=== PATIENT | male | born 1960 | race Caucasian/White ===

== ENCOUNTER → 2016-10-09 | Outpatient (CLI) | payer BC ==
[~2016-10-09] MED LIST: CEPH500C PO; SERT25TA PO
== END | disposition home or self-care (01) ==
LOC: C.RDSM 11:16
PROVIDERS: ATTEND Family Medicine
DX: M79.644 Pain in right finger(s) (principal)

== ENCOUNTER → 2017-03-05 | Outpatient (CLI) | payer OTHER ==
--- NOTE | 2017-03-05 15:08 | DIAGNOSTIC IMAGING REPORT ---
SOFT TISS HEAD/NECK-THYROID HISTORY: Nodes CERVICAL LYMPHADENOPATHY COMPARISON: None. FINDINGS: Findings consistent of bilateral cervical adenopathy. Largest node is inferior to the right mandible measuring 3.5 x 2.0 cm. Additional nodes are present all of which are smaller. No evidence for fatty hilum. IMPRESSION: Bilateral cervical adenopathy most prominent at the palpable region inferior to the right mandible. As it is palpable, fine needle aspiration in pathology is initially suggested. The above report was generated using voice recognition software. It may contain grammatical, syntax or spelling errors. Electronically signed by: Mati Marie M.D. 03/05/2017 3:07 PM Dictated Date/Time: 03/05/2017 3:05 PM
== END | disposition home or self-care (01) ==
LOC: C.ULTRBC 14:45
PROVIDERS: ATTEND Family Medicine
DX: R59.0 Localized enlarged lymph nodes (principal)

== ENCOUNTER → 2017-03-19 | Outpatient (CLI) | payer OTHER | END | disposition home or self-care (01) | LOC: C.PATH 08:47 | PROVIDERS: ATTEND Family Medicine | DX: R59.0 Localized enlarged lymph nodes (principal) ==

== ENCOUNTER 2022-08-10 09:35 | Inpatient (IN) ==
--- NOTE | 2022-08-10 11:27 | XRay Report ---
XR KUB/Abdomen 1 view CLINICAL HISTORY: constipation TECHNIQUE: 1 view of the abdomen was obtained. Comparison: Comparison is made to CT abdomen pelvis 07/30/2022 FINDINGS: A gastrostomy tube is seen. The osseous structures are grossly unremarkable. The bowel gas pattern is nonobstructive. A moderate amount of stool is noted within the large bowel. IMPRESSION: Moderate stool burden without evidence of fecal impaction. ACT 112: Negative or not required by law. Electronically signed by: Amado White M.D. 08/10/2022 11:26 AM
[2022-08-10] MEDS ORDERED: LIDOCAINE 2% JELLY 5 ML TUBE EXT ONE (11:30)
[2022-08-10] MEDS ORDERED: SODIUM CHLORIDE 0.9% 1000ML 1,000 ML IV ONE (12:43)
[2022-08-10] MEDS ORDERED: OPTIRAY 320 100ml IV ONE (13:18)
--- NOTE | 2022-08-10 14:10 | CT Scan Report ---
ABDOMEN AND PELVIS CT WITH IV CONTRAST CT DOSE: 316.39 mGy.cm HISTORY: Subsequent treatment strategy. Follow up study in a patient with history of head and neck ca rcinoma rectal pain and mass, h/o head neck CA TECHNIQUE: Multiaxial CT images of the abdomen and pelvis were performed following the IV administrat ion of 94 cc of Optiray, A dose lowering technique was utilized adhering to the principles of ALARA. COMPARISON STUDY: 07/30/2022, PET/CT 06/01/2022 from outside institution (images only without report). FINDINGS: Clear lung bases. No pneumatosis or pneumoperitoneum. The spleen, pancreas and adrenal glan ds are unremarkable. Possible tiny gallstones. 1.2 cm hypodense right hepatic lobe lesion is unchange d and likely benign. 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 Subcentimeter hypodensity of the hepati c dome is too small to characterize. Patency of the hepatic and portal veins. Punctate nonobstructing calculus of the superior pole left kidney. 9 mm cyst of the inferior pole lef t kidney. Unremarkable right kidney. No hydronephrosis. Nonspecific urinary bladder wall thickening. Prostatomegaly. Atherosclerosis of aorta without aneurysm. Surgical clips of the scrotum. No lymphade nopathy. Large amount of acute deep venous thrombi noted within branches of the right internal and ex ternal iliac veins, new from prior. A gastrostomy tube is in place and appears unremarkable. Moderate fecal retention. Mild rectal wall t hickening with perirectal stranding, progressed from prior. Trace abdominal pelvic ascites. Visualize d appendix appears normal. Nonobstructive bowel gas pattern. No acute fracture or destructive bone le whitley. IMPRESSION: 1. Acute deep venous thrombi of the right internal and external iliac veins, new from 07/30/2022. 2. Findings compatible with a nonspecific proctitis, possibly on a stercoral basis. 3. No bowel obstruction or pneumoperitoneum. 4. Unremarkable appearance of the gastrostomy tube. 5. Additional findings as above. ACT 112: Negative or not required by law. The above report was generated using voice recognition software. It may contain grammatical, syntax o r spelling errors. Electronically signed by: Lopez Monzon M.D. 08/10/2022 2:08 PM
[2022-08-10] MEDS ORDERED: HYDROmorphone INJ 0.5 MG/0.5 ML SYR IV PRN (14:17)
[2022-08-10] MEDS ORDERED: ONDANSETRON INJ 2 MG/ML 2 ML VIAL IV STA (14:18)
[2022-08-10] MEDS ORDERED: Heparin IV Adult Wt-Based Standard WITH Bolus Protocol IV STA (14:23)
[2022-08-10] MEDS ORDERED: HEPARIN SOD (PORCINE) 1000 UNIT/ML IV ONE (14:38)
[2022-08-10] MEDS ORDERED: HEPARIN SODIUM/DEXTROSE 25,000 UNITS/500 ML BAG IV SCH (14:45)
--- NOTE | 2022-08-10 14:49 | History & Physical Report ---
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 Currently on chemotherapy with cisplatin, and finished the seventh cycle was on 08/08/2022, and has only 2 more radiation treatments to complete. He follows with Dr. Roque Torres and Shalini Torres rad/onc. -Continue pain control with viscous lidocaine, consider reducing morphine sulfate concentrate if does not seem to improve pain, dexamethasone 2 mg daily, fluconazole 100 mg daily, -Follows with oncology and Rad/Onc as outpatient (2) Chemotherapy induced neutropenia: Plan: - Follow cbc w/ diff - Neutropenic precautions (3) Acute DVT (deep venous thrombosis): Plan: - CT abd/pelvis reviewed showing new DVT - Continue heparin gtt for now, discuss transition to DOAC vs lovenox dosing tomorrow - US doppler BLE pending, no edema, no known trauma but appears to be provoked due to cancer as above (4) Constipation: Plan: - Last BM 5 d ago, milk of mag enema administered in the ER, small BM--- will continue mirilax through peg tube until bowel movement - Consider relistor IV if miralax unsuccessful (5) Malnutrition: Plan: - Risk And Insurance Consultant consulted - follow with as outpatient - Daily weight - NSS at 80 ml/hr x 1 more bag, already received 1 L NSS - Boost [facility] peg TID at home not available here, will ask for substitute of Nutren 2.0 if unable to bring this from home DVT ppx: - teds, scds, heparin drip CODE: DNR/DNI Dispo: From home, likely to remain in the hospital x 1-2 days A total of 80 minutes were spent with greater than 50% of that time face to face with the patient, personally reviewing all current laboratories, imaging studies, past medication reconciliation, outpatient chart review, and discussion with specialists to collaborate care for the patient with attending. Please see attending documentation for corrections and/or additions. History of Present Illness Chief Complaint: Constipation Primary Care Provider: NO PCP This is a 61 yo past medical history of right tonsillar squamous cell carcinoma T2 N1 M0, stage I disease, with right cervical lymph node involvement, originally diagnosed in Mar 2017 s/p FNA. Currently on chemotherapy with cisplatin, and finished the seventh cycle was on 08/08/2022, and has only 2 more radiation treatments to complete. He follows with Dr. Roque Torres and Shalini Torres rad/onc. He reports having recent constipation and has not had a bowel movement in the last 5 days. He does have some lower rectum like pain, felt that there was hard stool unable to pass, and felt 10/10 pain and nearly passed out. In the ER he was administered a milk of magnesium enema with some success, he reports that it was "traumatic" and would prefer to not have another enema. He is agreeable to high-dose MiraLAX through the PEG tube. His pain involving tonsillar carcinoma is currently well controlled, and reports getting more relief from viscous lidocaine with swish and spit then he does from oral concentrated morphine. Patient reports that his PEG tube was placed to [facility] exactly 2 weeks ago on 07/27/22, the peg tube placement is slightly irritating, however denies any acute pain, discharge, bleeding from the site. He has been using boost high density protein/calorie 3 times per day and tolerating it well. He does take some p.o. intake, yesterday was able to tolerate a full boost orally as well as water. Pt reports large amount of weight loss over the past few months and does not know if he has lost more weight since peg was placed. He does swallow the majority of his medications by mouth, but does report having some right-sided tongue soreness. He has a history of oral Nava/thrush on daily Diflucan per his oncologist. He also notes that he has been looking for a PCP, as 2 of his previous providers left [facility] practice. Pt is requesting something to drink/ice as his mouth is very dry. CT abdomen pelvis shows new acute right internal and external iliac vein DVT, moderate stool, proctitis. The DVT in iliac veins is new compared to a previous scan from 07/30/22. He denies any peripheral lower leg swelling. Pt reports never having a blood clot before. No known family members with clotting disorder to his knowledge. Pt reports prior to this he is a very healthy person, mountain bikes, rock climbs for fun, not on any previous medication. Allergies Allergy/AdvReac Type Severity Reaction Status Date / Time oxycodone Allergy Intermediate Gastrointestinal Unverified 08/10/22 12:14 Upset Home Medications Medication Instructions Recorded Confirmed Type multivitamin 1 tab PO DAILY 07/02/22 08/10/22 History ondansetron HCl 8 mg tablet 8 mg PO Q8H PRN NAUSEA/VOMITING 07/02/22 08/10/22 History prochlorperazine maleate 10 mg 10 mg PO Q6H PRN NAUSEA/VOMITING 07/02/22 08/10/22 History tablet (Compazine) fluocinonide 0.05 % topical cream 1 applic topical QID PRN itching 07/24/22 08/10/22 Rx #60 grams omeprazole 20 mg capsule,delayed 20 mg PO DAILY 07/24/22 08/10/22 History release dexamethasone 4 mg tablet 2 mg PO DAILY 07/30/22 08/10/22 History metoclopramide HCl 10 mg tablet 10 mg PO Q6H PRN ABD PAIN 07/30/22 08/10/22 History (Reglan) fluconazole 100 mg tablet 100 mg PO DAILY 08/06/22 08/10/22 History docusate sodium 100 mg capsule 100 mg PO BID PRN Constipation 08/10/22 08/10/22 History (Colace) fluoride (sodium) 1.1 % dental See Rx Instructions .Route .COMPLEX 08/10/22 08/10/22 History cream (SF 5000 Plus) lidocaine 5 % topical ointment 1 applic topical TID PRN Pain 08/10/22 08/10/22 History lidocaine HCl 2 % mucosal solution 2.5 ml mucous membrane Q6H PRN 08/10/22 08/10/22 History (Lidocaine Viscous) Severe Pain (Scale Score 7-10) morphine concentrate 100 mg/5 mL 5 mg PO Q4H PRN Severe Pain (Scale 08/10/22 08/10/22 History (20 mg/mL) oral solution Score 7-10) nut tx, lact-reduced, iron 0.09 1 ea feeding tube TID 08/10/22 08/10/22 History gram-2.25 kcal/mL oral liquid (Boost VHC) silver sulfadiazine 1 % topical 1 applic topical BID 08/10/22 08/10/22 History cream (Silvadene) Past Med/Surg History Medical History Bone fracture Ribs and right ankle Head and neck cancer Kidney stone Squamous cell carcinoma Diagnosed via biopsy on 05/14/22 Surgical History H/O hemorrhoidectomy History of hernia repair Laparoscopy Bilateral inguinal hernia repair Family History Father , 87yo Myocardial infarction Diabetes Hypertension Sister Melanoma Mother Hypertension PAD (peripheral artery disease) Sister No problems noted. Other No family history of adverse response to anesthesia No family history of bleeding disorder Social History Smoking Status: Never smoker Second Hand Exposure: Yes; Do You Dip or Chew Tobacco: No; Hx Alcohol Use: Yes Alcohol Intake Frequency: Monthly or Less Hx Substance Use: No Preferred Language: German Communication Ability: Effective Visual Impairment: No Limitations Hearing Ability: Normal Wheat Buyer Required: No Beliefs That Will Affect Care: None marital status: Current Living Situation: Spouse current occupational status: retired current occupation: Artist How many Children do You have: 0 Feels Safe at Home: Yes Diet: regular caffeine: Yes (1-2 cups/day) during the past year weight has: remained stable Assistive Devices: Glasses Review of Systems Review of Systems: Constitutional: No fever, sweats or chills Eyes: No diplopia, no worsening or blurred vision ENT: normal hearing, no trouble swallowing, no dysphagia or sensation of food getting stuck, + redness and irritation of the right neck s/p XRT therapy Respiratory: No cough, sputum, dyspnea at rest or on exertion Cardiovascular: No chest pain, tightness or palpitations Abdomen: No pain, nausea, vomiting, diarrhea. + peg tube in place, + constipation as per HPI Musculoskeletal: No joint pain, calf pain, swelling Neurologic: No weakness, numbness/tingling, or balance problems Psychiatric: No anxiety or depression Skin: No rash or itch Physical Exam Physical Exam: General: awake, alert, no apparent distress, + thin with BMI of 16.8 Head: Normocephalic, atraumatic ENT: PERRL, EOMI, no pharyngeal exudate, mucous membranes moist Chest: Clear to auscultation, on room air, no adventitious breath sounds Cardiac: Regular rate and rhythm, no murmur, no JVD, normal peripheral pulses, good capillary refill Abdominal: NABS x 4 quadrants, soft, nondistended, nontender to palpation, no rebound or guarding Extremities: Normal inspection, no peripheral edema or erythema, calfs nontender to palpation Psych: Normal mood and affect Neuro: AAO x 3, strength intact bilaterally and rated 5/5, no motor deficits, speech is clear, no peripheral sensory deficits Results & Data Results & Data Vital Signs (Past 12 Hours) Vital Signs Temp Pulse Resp BP Pulse Ox O2 Del Method 08/10/22 09:49 36.4 C L 75 18 131/69 100 Room Air Laboratory Results 08/10/22 08/10/22 08/10/22 15:07 15:07 15:07 WBC 3.06 L RBC 3.09 L Hgb 10.0 L Hct 28.4 L MCV 91.9 MCH 32.4 MCHC 35.2 RDW Std Deviation 44.1 RDW Coeff of Anita 13.8 Plt Count 134 MPV 9.6 Immature Gran % (Auto) 0.0 Neut % (Auto) 81.8 Lymph % (Auto) 1.6 Harney % (Auto) 16.3 Eos % (Auto) 0.0 Baso % (Auto) 0.3 Neut # (Auto) 2.50 Lymph # (Auto) 0.05 L Harney # (Auto) 0.50 Eos # (Auto) 0.00 Baso # (Auto) 0.01 Immature Gran # (Auto) 0.00 L PT 11.4 INR 1.0 APTT 21.1 PTT Ratio 0.7 Sodium 133 L Potassium 4.8 Chloride 102 Carbon Dioxide 25 Anion Gap 6 BUN 20 Creatinine 0.73 Est Cr Clr Drug Dosing 68.0 Est GFR ( Amer) 115.2 Est GFR (Non-Af Amer) 99.4 BUN/Creatinine Ratio 27.4 H Glucose 108 H Calcium 8.2 L Total Bilirubin 0.4 AST 16 ALT 10 Alkaline Phosphatase 52 Total Protein 5.7 L Albumin 3.2 L Globulin 2.5 Albumin/Globulin Ratio 1.3 Diagnostic Findings KUB X-Ray 08/10/22 10:19 XR KUB/Abdomen 1 view CLINICAL HISTORY: constipation TECHNIQUE: 1 view of the abdomen was obtained. Comparison: Comparison is made to CT abdomen pelvis 07/30/2022 FINDINGS: A gastrostomy tube is seen. The osseous structures are grossly unremarkable. The bowel gas pattern is nonobstructive. A moderate amount of stool is noted within the large bowel. IMPRESSION: Moderate stool burden without evidence of fecal impaction. ACT 112: Negative or not required by law. Electronically signed by: Amado White M.D. 08/10/2022 11:26 AM Abdomen/Pelvis CT 08/10/22 12:[address] WITH IV CONTRAST CT DOSE: 316.39 mGy.cm HISTORY: Subsequent treatment strategy. Follow up study in a patient with history of head and neck carcinoma rectal pain and mass, h/o head neck CA TECHNIQUE: Multiaxial CT images of the abdomen and pelvis were performed following the IV administration of 94 cc of Optiray, A dose lowering technique was utilized adhering to the principles of ALARA. COMPARISON STUDY: 07/30/2022, PET/CT 06/01/2022 from outside institution (images only without report). FINDINGS: Clear lung bases. No pneumatosis or pneumoperitoneum. The spleen, pancreas and adrenal glands are unremarkable. Possible tiny gallstones. 1.2 cm hypodense right hepatic lobe lesion is unchanged and likely benign. 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 Subcentimeter hypodensity of the hepatic dome is too small to characterize. Patency of the hepatic and portal veins. Punctate nonobstructing calculus of the superior pole left kidney. 9 mm cyst of the inferior pole left kidney. Unremarkable right kidney. No hydronephrosis. Nonspecific urinary bladder wall thickening. Prostatomegaly. Atherosclerosis of aorta without aneurysm. Surgical clips of the scrotum. No lymphadenopathy. Large amount of acute deep venous thrombi noted within branches of the right internal and external iliac veins, new from prior. A gastrostomy tube is in place and appears unremarkable. Moderate fecal retention. Mild rectal wall thickening with perirectal stranding, progressed from prior. Trace abdominal pelvic ascites. Visualized appendix appears normal. Nonobstructive bowel gas pattern. No acute fracture or destructive bone lesion. IMPRESSION: 1. Acute deep venous thrombi of the right internal and external iliac veins, new from 07/30/2022. 2. Findings compatible with a nonspecific proctitis, possibly on a stercoral basis. 3. No bowel obstruction or pneumoperitoneum. 4. Unremarkable appearance of the gastrostomy tube. 5. Additional findings as above. ACT 112: Negative or not required by law. The above report was generated using voice recognition software. It may contain grammatical, syntax or spelling errors. Electronically signed by: Lopez Monzon M.D. 08/10/2022 2:08 PM Code Status & VTE Plan Code Status DNR/DNI - discussed with the patient at bedside and with his present Supervising Physician Co-Signing Physician Notes 61 yo M with right tonsillar squamous cell carcinoma since Mar 2017. He continues on chemotherapy and XRT. Severe constipation brought him in today. He reports starting liquid morphine for pain from XRT and related to new PEG, placed recently for malnutrition. Constipation was so severe he reports shaking and still reports discomfort and soreness in his rectum post enema. He is starting to feel improved overall. On exam he is cachectic but mentating clearly and in no acute distress. His is at bedside. His abdomen is soft, NTND and PEG in place without complication. Skin is warm and dry. He is able to independently sit up in bed. Lungs are clear to auscultation throughout and CV exam reveals reg rate and rhythm with S1/2 heard and no murmurs. No peripheral edema present. There is a large area of erythematous neck tissue on the right neck with granulation tissue present. There is a sheen from some sort of topical over this. Labwork reviewed with evidence of pancytopenia and improved platelets, pancytopenia likely related to chemotherapy. Imaging reviewed with abd/pel CT showing fecal retention and right internal and external iliac DVT. These are asymptomatic. 1. Acute DVT foster provoked in the setting of active malignancy 2. Opioid induced constipation 3. Squamous cell carcinoma of neck 4. Severe protein calorie malnutrition 5. Antineoplastic related pancytopenia Improvement in constipation since milk and molasses enema given in the ER. Agree with scheduled miralax via PEG. Appreciate nutrition recommendations on Boost via PEG and if this may be contributing to constipation. With morphine started in the last few weeks, this is the likely culprit. He denies needing this much anymore and we will avoid narcotics as much as able at this point. For the DVT, he is being started on a heparin drip. I touched base with his oncologist, Dr. Odessa Torres, who is in agreement to transition him to a DOAC at time of discharge when he is feeling better. He is being treated with Dr. Brandi Torres in the radiation oncology office. If not discharged prior to Saturday, will need to consult them to continue his treatments after the . I reviewed the plan with he and his who is at bedside and all questions were answered to their satisfaction. DO Josh (5) Malnutrition Malnutrition type: protein-calorie malnutrition Protein-calorie malnutrition severity: severe Qualified Code(s): E43 - Unspecified severe protein-calorie malnutrition
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
[2022-08-10 15:29] LABS: Basophils # (auto) 0.01 K/uL (0-0.2); Basophils % (auto) 0.3 %; Hematocrit (blood only) 28.4 % (42.0-52.0); Lymphocytes # (auto) 0.05 K/uL (1.2-3.4); Lymphocytes % (auto) 1.6 %; Mean Corpuscular Hemoglobin 32.4 pg (25.0-34.0); Mean Corpuscular Hgb Conc 35.2 g/dL (32.0-36.0); Mean Corpuscular Volume 91.9 fL (80.0-100.0); Mean Platelet Volume 9.6 fL (9.4-12.4); Monocytes % (auto) 16.3 %; Neutrophils % (auto) 81.8 %; Platelet Count 134 K/uL (130-400); RDW Coefficient of Variation 13.8 % (11.5-14.5); RDW Standard Deviation 44.1 fL (36.4-46.3); Red Blood Count 3.09 M/uL (4.70-6.10); White Blood Count 3.06 K/ul (4.8-10.8)
[2022-08-10 15:41] LABS: Albumin Globulin Ratio 1.3 (0.9-2); Albumin Level 3.2 gm/dl (3.4-5.0); BUN Creatinine Ratio 27.4 (10-20); Bilirubin,Total 0.4 mg/dl (0.2-1.0); Calcium 8.2 mg/dl (8.6-10.3); Est GFR (African American) 115.2 ml/min; Est GFR (Non-African American) 99.4 ml/min; Globulin 2.5 gm/dl (2.5-4.0); Potassium 4.8 mmol/L (3.5-5.1); Total Protein 5.7 gm/dl (6.0-8.3)
[2022-08-10] MEDS ORDERED: POLYETHYLENE (MIRALAX) 17 GM PACK PEG SCH (15:45)
[2022-08-10 15:58] LABS: Partial Thromboplastin Ratio 0.7; Partial Thromboplastin Time 21.1 Seconds (21.0-31.0); Prothrombin Time 11.4 Seconds (9.0-12.0)
[2022-08-10] MEDS ORDERED: SODIUM CHLORIDE 0.9% 500 ML IV SCH (16:00)
[2022-08-10] MEDS ORDERED: HEPARIN SOD (PORCINE) 1000 UNIT/ML IV STA (16:35)
--- NOTE | 2022-08-10 17:12 | Ultrasound Report ---
BILATERAL LOWER EXTREMITY VENOUS DOPPLER CLINICAL HISTORY: DVT COMPARISON STUDY: Right lower extremity venous Doppler ultrasound August 31, 2014. CT of the abdomen an d pelvis performed earlier today. TECHNIQUE: Sonography of the deep venous system of the bilateral lower extremities was performed. Co mpression and augmentation were evaluated. FINDINGS: The bilateral common femoral, superficial femoral and popliteal veins were compressible. A ugmentation was normal. Flow was shown within the deep calf vessels. The deep venous thrombus within the right internal/external iliac veins on CT from earlier today is not imaged on this exam. IMPRESSION: 1. No evidence of deep venous thrombus within the bilateral lower extremities. 2. Deep venous thrombus within the right internal and external iliac veins on CT from earlier today i s not imaged on this exam. ACT 112: Negative or not required by law. Electronically signed by: Zac Holder M.D. 08/10/2022 5:11 PM
[2022-08-10] MEDS ORDERED: MoRPHine SULFATE 10 MG/0.5 ML UDP PO PRN (19:05)
[2022-08-10] MEDS ORDERED: LIDOCAINE 5% OINT 30 GM TUBE TOP PRN (19:05)
[2022-08-10] MEDS ORDERED: FLUOCINONIDE 0.05% CR 15 GM TUBE EXT PRN (19:05)
[2022-08-10] MEDS ORDERED: DOCUSATE SODIUM 100 MG CAP PO PRN (19:05)
[2022-08-10] MEDS ORDERED: ACETAMINOPHEN 325 MG TAB PO PRN (19:05)
[2022-08-10] MEDS ORDERED: LIDOCAINE VISCOUS 2% 15 ML UDC PO PRN (19:05)
[2022-08-10] MEDS ORDERED: PROCHLORPERAZINE MALEATE 10 MG TAB PO PRN (19:05)
[2022-08-10] MEDS ORDERED: ONDANSETRON INJ 2 MG/ML 2 ML VIAL IV PRN (19:05)
[2022-08-10] MEDS: POLYETHYLENE (MIRALAX) 17 GM PACK PEG SCH ×2 (20:49→21:27)
[2022-08-10] MEDS: [UNRECOGNIZED DRUG - OTHER] PEG SCH (20:50)
[2022-08-10] MEDS: SILVER SULFADIAZINE 1% CR 50 GM JAR TOP SCH (20:50)
[2022-08-10 23:50] LABS: Partial Thromboplastin Ratio 1.2
[2022-08-11] MEDS ORDERED: HEPARIN SOD (PORCINE) 1000 UNIT/ML IV ONE (00:15)
[2022-08-11] MEDS: ONDANSETRON 8MG OD TAB PO PRN ×2 (00:47→20:44)
[2022-08-11] MEDS: METOCLOPRAMIDE HCL 10 MG TABLET PO PRN ×3 (01:25→20:44)
[2022-08-11] MEDS: POLYETHYLENE (MIRALAX) 17 GM PACK PEG SCH ×3 (03:17→16:21)
[2022-08-11 07:50] LABS: Basophils # (auto) 0.01 K/uL (0-0.2); Basophils % (auto) 0.5 %; Eosinophils # (auto) 0.01 K/uL (0-0.50); Eosinophils % (auto) 0.5 %; Hematocrit (blood only) 30.8 % (42.0-52.0); Hemoglobin 10.8 g/dl (14.0-18.0); Lymphocytes # (auto) 0.21 K/uL (1.2-3.4); Lymphocytes % (auto) 10.4 %; Mean Corpuscular Hemoglobin 32.5 pg (25.0-34.0); Mean Corpuscular Hgb Conc 35.1 g/dL (32.0-36.0); Mean Corpuscular Volume 92.8 fL (80.0-100.0); Mean Platelet Volume 10.3 fL (9.4-12.4); Monocytes # (auto) 0.39 K/uL (0.11-0.59); Monocytes % (auto) 19.4 %; Neutrophils # (auto) 1.39 K/uL (1.40-6.50); Neutrophils % (auto) 69.2 %; Platelet Count 149 K/uL (130-400); RDW Coefficient of Variation 14.1 % (11.5-14.5); RDW Standard Deviation 44.4 fL (36.4-46.3); Red Blood Count 3.32 M/uL (4.70-6.10); White Blood Count 2.01 K/ul (4.8-10.8)
[2022-08-11 08:12] LABS: BUN Creatinine Ratio 22.5 (10-20); Calcium 8.7 mg/dl (8.6-10.3); Creatinine Clr Calc Pharmacy 76.6 ml/min; Est GFR (African American) 116.5 ml/min; Est GFR (Non-African American) 100.6 ml/min; Potassium 4.2 mmol/L (3.5-5.1)
[2022-08-11] MEDS: dexAMETHasone 1 MG TAB PO SCH (08:18)
[2022-08-11] MEDS: FLUCONAZOLE 100 MG TAB PO SCH (08:19)
[2022-08-11] MEDS: MULTIVITAMIN TAB PO SCH (08:20)
[2022-08-11] MEDS: [UNRECOGNIZED DRUG - OTHER] PEG SCH ×3 (08:22→20:51)
[2022-08-11] MEDS: SILVER SULFADIAZINE 1% CR 50 GM JAR TOP SCH ×2 (08:23→20:43)
[2022-08-11 08:29] LABS: Partial Thromboplastin Ratio 1.4
[2022-08-11 08:53] LABS: Partial Thromboplastin Time 40.3 Seconds (21.0-31.0)
[2022-08-11] MEDS ORDERED: bisacodyL 5 MG TABEC PO SCH (09:00)
--- NOTE | 2022-08-11 09:49 | Hospitalist Progress Note ---
Date of Service August 11, 2022 Assessment & Plan (1) Right tonsillar squamous cell carcinoma: (2) Chemotherapy induced neutropenia: (3) Acute DVT (deep venous thrombosis): (4) Constipation: (5) Malnutrition: Plan 61 yoM with PMHx of SCC of R tonsil admitted with significant constipation and incidentally noted DVT. Constipation Currently resolved, pt now with bloody stools Holding daily dulcolax Stools now bloody likely due to heparin drip pt is currently on for DVT (see below) vs. trauma with recent enema DVT CT noted R internal and external iliac DVT Was on heparin drip Given now bloody stools, transitioned to DOAC Eliquis Consider GI eval if persistent. Monitor H/H with AM labs SCC Follows with rad onc, Dr. faustin Pain control as needed with constipation regimen Malnutrition Pt with newly placed PEG Nutrition via PEG tube with limited PO intake as tolerated Neutropenia Neutropenic precautions CODE STATUS: DNR/DNI DVT prophylaxis: On DOAC currently Dispo: Home once bloody stools resolves Admission and Anticipated Discharge Date Admission Date: August 10, 2022 Supervising Physician Co-Signing Physician Notes 61 yo M with right tonsillar squamous cell carcinoma since Mar 2017. He continues on chemotherapy and XRT. Severe constipation brought him in today. He reports starting liquid morphine for pain from XRT and related to new PEG, placed recently for malnutrition. Constipation was so severe he reports shaking and still reports discomfort and soreness in his rectum post enema. He is starting to feel improved overall. On exam he is cachectic but mentating clearly and in no acute distress. His is at bedside. His abdomen is soft, NTND and PEG in place without complication. Skin is warm and dry. He is able to independently sit up in bed. Lungs are clear to auscultation throughout and CV exam reveals reg rate and rhythm with S1/2 heard and no murmurs. No peripheral edema present. There is a large area of erythematous neck tissue on the right neck with granulation tissue present. There is a sheen from some sort of topical over this. Labwork reviewed with evidence of pancytopenia and improved platelets, pancytopenia likely related to chemotherapy. Imaging reviewed with abd/pel CT showing fecal retention and right internal and external iliac DVT. These are asymptomatic. 1. Acute DVT likley provoked in the setting of active malignancy 2. Opioid induced constipation 3. Squamous cell carcinoma of neck 4. Severe protein calorie malnutrition 5. Antineoplastic related pancytopenia Improvement in constipation since milk and molasses enema given in the ER. Agree with scheduled miralax via PEG. Appreciate nutrition recommendations on Boost via PEG and if this may be contributing to constipation. With morphine started in the last few weeks, this is the likely culprit. He denies needing this much anymore and we will avoid narcotics as much as able at this point. For the DVT, he is being started on a heparin drip. I touched base with his o ncologist, Dr. Odessa Faustin, who is in agreement to transition him to a DOAC at time of discharge when he is feeling better. He is being treated with Dr. Brandi Faustin in the radiation oncology office. If not discharged prior to Saturday, will need to consult them to continue his treatments after the . I reviewed the plan with he and his who is at bedside and all questions were answered to their satisfaction. DO Gabriel Moreno Pt seen this AM. Was having multiple BMs, now loose. Noting some blood in bowel movements that he noticed this morning. Pain well controlled. Review of Systems Review of Systems: All systems reviewed & are unremarkable except as noted in Subjective Physical Exam Physical Exam: General: Alert, oriented. Skin: rash on right neck Psych: Appropriate mood and affect Neuro: No gross deficits HEENT: NC/AT CV: RRR, Normal s1, s2. No murmurs appreciated Resp: Breath sounds clear bilaterally, no increased effort of breathing. Abdomen: Soft, nontender, nondistended. No guarding. No organomegaly appreciated. Extremities: No edema in lower extremities bilaterally. Results & Data Results & Data Vital Signs (Past 12 Hours) Vital Signs Temp Pulse Pulse Resp BP Pulse Ox O2 Del Method 08/11/22 07:54 36.7 C 67 18 133/79 96 Room Air 08/11/22 05:49 59 L 08/11/22 05:15 36.8 C 69 18 132/71 95 Room Air 08/10/22 21:56 66 08/10/22 22:51 36.8 C 70 16 125/70 95 Room Air (5) Malnutrition Malnutrition type: protein-calorie malnutrition Protein-calorie malnutrition severity: severe Qualified Code(s): E43 - Unspecified severe protein-calorie malnutrition
[2022-08-11] MEDS: APIXABAN 5 MG TABLET PO SCH ×2 (12:59→20:50)
[2022-08-11] MEDS ORDERED: PROCHLORPERAZINE MALEATE 10 MG TAB PO PRN (13:05)
[2022-08-11] MEDS ORDERED: SODIUM CHLORIDE 0.9% 1000ML 1,000 ML IV ONE (19:41)
[2022-08-12] MEDS ORDERED: APIXABAN 5 MG TABLET PO SCH
[2022-08-12 07:28] LABS: Basophils # (auto) 0.01 K/uL (0-0.2); Basophils % (auto) 0.5 %; Eosinophils # (auto) 0.04 K/uL (0-0.50); Eosinophils % (auto) 1.9 %; Hematocrit (blood only) 32.3 % (42.0-52.0); Hemoglobin 11.4 g/dl (14.0-18.0); Immature Granulocytes # (auto) 0.01 K/uL (0.01-0.20); Immature Granulocytes % (auto) 0.5 %; Lymphocytes # (auto) 0.23 K/uL (1.2-3.4); Mean Corpuscular Hemoglobin 32.3 pg (25.0-34.0); Mean Corpuscular Hgb Conc 35.3 g/dL (32.0-36.0); Mean Corpuscular Volume 91.5 fL (80.0-100.0); Mean Platelet Volume 9.9 fL (9.4-12.4); Monocytes # (auto) 0.49 K/uL (0.11-0.59); Monocytes % (auto) 23.3 %; Neutrophils # (auto) 1.32 K/uL (1.40-6.50); Neutrophils % (auto) 62.8 %; Platelet Count 183 K/uL (130-400); RDW Coefficient of Variation 14.1 % (11.5-14.5); RDW Standard Deviation 45.3 fL (36.4-46.3); Red Blood Count 3.53 M/uL (4.70-6.10)
[2022-08-12 07:49] LABS: Partial Thromboplastin Time 27.3 Seconds (21.0-31.0)
[2022-08-12] MEDS: APIXABAN 5 MG TABLET PO SCH (08:02)
[2022-08-12] MEDS: dexAMETHasone 1 MG TAB PO SCH (08:05)
[2022-08-12] MEDS: FLUCONAZOLE 100 MG TAB PO SCH (08:05)
[2022-08-12 08:06] LABS: BUN Creatinine Ratio 16.2 (10-20); Calcium 9.1 mg/dl (8.6-10.3); Creatinine Clr Calc Pharmacy 73.5 ml/min; Est GFR (African American) 114.6 ml/min; Est GFR (Non-African American) 98.9 ml/min; Potassium 3.6 mmol/L (3.5-5.1)
[2022-08-12] MEDS: [UNRECOGNIZED DRUG - OTHER] PEG SCH (08:06)
[2022-08-12] MEDS: SILVER SULFADIAZINE 1% CR 50 GM JAR TOP SCH (08:06)
[2022-08-12] MEDS: MULTIVITAMIN TAB PO SCH (08:06)
--- NOTE | 2022-08-12 14:28 | Discharge Summary ---
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 Currently on chemotherapy with cisplatin, and finished the seventh cycle was on 08/08/2022, and has only 2 more radiation treatments to complete. He follows with Dr. Roque Torres and Shalini Torres rad/onc. He reports having recent constipation and has not had a bowel movement in the last 5 days. He does have some lower rectum like pain, felt that there was hard stool unable to pass, and felt 10/10 pain and nearly passed out. In the ER he was administered a milk of magnesium enema with some success, he reports that it was "traumatic" and would prefer to not have another enema. He is agreeable to high-dose MiraLAX through the PEG tube. His pain involving tonsillar carcinoma is currently well controlled, and reports getting more relief from viscous lidocaine with swish and spit then he does from oral concentrated morphine. Patient reports that his PEG tube was placed to [facility] exactly 2 weeks ago on 07/27/22, the peg tube placement is slightly irritating, however denies any acute pain, discharge, bleeding from the site. He has been using boost high density protein/calorie 3 times per day and tolerating it well. He does take some p.o. intake, yesterday was able to tolerate a full boost orally as well as water. Pt reports large amount of weight loss over the past few months and does not know if he has lost more weight since peg was placed. He does swallow the majority of his medications by mouth, but does report having some right-sided tongue soreness. He has a history of oral Nava/thrush on daily Diflucan per his oncologist. He also notes that he has been looking for a PCP, as 2 of his previous providers left [facility] practice. Pt is requesting something to drink/ice as his mouth is very dry. CT abdomen pelvis shows new acute right internal and external iliac vein DVT, moderate stool, proctitis. The DVT in iliac veins is new compared to a previous scan from 07/30/22. He denies any peripheral lower leg swelling. Pt reports never having a blood clot before. No known family members with clotting disorder to his knowledge. Pt reports prior to this he is a very healthy person, mountain bikes, rock climbs for fun, not on any previous medication. Admission Exam Per Admitting Provider General: awake, alert, no apparent distress, + thin with BMI of 16.8 Head: Normocephalic, atraumatic ENT: PERRL, EOMI, no pharyngeal exudate, mucous membranes moist Chest: Clear to auscultation, on room air, no adventitious breath sounds Cardiac: Regular rate and rhythm, no murmur, no JVD, normal peripheral pulses, good capillary refill Abdominal: NABS x 4 quadrants, soft, nondistended, nontender to palpation, no rebound or guarding Extremities: Normal inspection, no peripheral edema or erythema, calfs nontender to palpation Psych: Normal mood and affect Neuro: AAO x 3, strength intact bilaterally and rated 5/5, no motor deficits, speech is clear, no peripheral sensory deficits Principal Diagnosis Acute DVT/Constipation Discharge Exam General: Alert, oriented. Skin: erythematous lesion on right neck Psych: Appropriate mood and affect Neuro: No gross deficits HEENT: NC/AT CV: RRR, Normal s1, s2. No murmurs appreciated Resp: Breath sounds clear bilaterally, no increased effort of breathing. Abdomen: Soft, nontender, nondistended Extremities: No edema in lower extremities bilaterally. Discharge Data Allergies Allergy/AdvReac Type Severity Reaction Status Date / Time oxycodone Allergy Intermediate Gastrointestinal Unverified 08/10/22 12:14 Upset Consultations 08/10/22 14:44 ED Decision to Admit Stat Ordered Studies 08/10/22 12:30 CT Abd and Pelvis [CT abd pelvis IV con only] Stat 08/10/22 14:44 US venous doppler [facility] Stat Hospital Course (1) Right tonsillar squamous cell carcinoma: (2) Chemotherapy induced neutropenia: (3) Acute DVT (deep venous thrombosis): (4) Constipation: (5) Malnutrition: Plan 61 yoM with PMHx of SCC of R tonsil currently following with Radiation Oncology who was admitted with significant constipation and incidentally noted DVT. Constipation Currently resolved after enema in the ED with bisacodyl. Pt had an episode of bloody stools, currently resolved. Likely due to heparin drip anticoagulation, was transitioned to DOAC Eliquis. Continue home daily dulcolax while on narcotics for cancer related pain. Miralax with escalating doses discussed as well for at home treatment. DVT CT noted R internal and external iliac DVT Was on heparin drip, transitioned to Eliquis. Discharged on Eliquis with pcp followup. SCC Follows with rad onc, Dr. Torres Continue home pain control as needed with constipation regimen Radiation Oncology follow up as scheduled. Malnutrition Pt with newly placed PEG Nutrition via PEG tube with limited PO intake as tolerated Neutropenia Neutropenic precautions Total Time Total Time Spent Total Time Spent (In Minutes): >30 minutes Discharge Plan Discharge Items Patient Disposition: Home - Self-Care Reason For Visit: ACUTE DVT/CONSTIPATION Discharge Diagnosis: Acute DVT, Constipation Activity: Per Instructions section Non-emergency contact: Primary Care Provider and Oncologist Call non-emergency contact if: you have any medication questions and your symptoms worsen Follow-up/Referrals: PCP,NO [Primary Care Provider] - Diet: Full liquid Addtl Attending Provider Instructions: You were admitted due to severe constipation and you were found to have a deep vein blood clot as well. We are discharging you on Eliquis, a blood thinner to help with your blood clot. Take the Eliquis 10mg dose for 11 more doses. Then start taking the Eliquis 5mg dose twice a day continuously until you follow up with your primary care provider. Please continue with the miralax regimen to help with your constipation as discussed, with daily bisacodyl. Please keep close follow up with your primary care provider (we will assist with scheduling) and your radiation oncologist. Pending Studies at Discharge: No Stand-Alone Forms: My [facility] [employer] Smoking Cessation Medications and DC Order Prescriptions: New Eliquis 5 mg Tablet 10 mg PO BID Qty: 22 0RF Rx Instructions: Take 2 pills by mouth twice a day for 11 more doses. Eliquis 5 mg tablet 5 mg PO BID Qty: 60 0RF Rx Instructions: Take 1 5mg pill twice a day after completing the 10mg doses. bisacodyl [Gentle Laxative (bisacodyl)] 5 mg Tablet,Delayed Release (Dr/Ec) 10 mg PO DAILY Qty: 60 0RF polyethylene glycol 3350 [ClearLax] 17 gram/dose powder 17 g PO DAILY 4 Days Qty: 68 0RF Continued ondansetron HCl 8 mg tablet 8 mg PO Q8H PRN (Reason: NAUSEA/VOMITING) prochlorperazine maleate [Compazine] 10 mg tablet 10 mg PO Q6H PRN (Reason: NAUSEA/VOMITING) multivitamin Tablet 1 tab PO DAILY omeprazole 20 mg capsule,delayed release(DR/EC) 20 mg PO DAILY dexamethasone 4 mg tablet 2 mg PO DAILY Rx Instructions: Start Date 07/30/2022 - End Date 08/13/2022 metoclopramide HCl [Reglan] 10 mg tablet 10 mg PO Q6H PRN (Reason: ABD PAIN) fluconazole 100 mg tablet 100 mg PO DAILY Rx Instructions: Start Date 08/02/2022 - End Date 08/15/2022 fluocinonide 0.05 % cream 1 applic topical QID PRN (Reason: itching) Qty: 60 3RF docusate sodium [Colace] 100 mg Capsule 100 mg PO BID PRN (Reason: Constipation) fluoride (sodium) [SF 5000 Plus] 1.1 % cream See Rx Instructions .ROUTE .COMPLEX Rx Instructions: Use once daily in place of regular toothpaste. [place] gently for 2 minutes. Spit and do not rinse. Do not eat or drink for 1 hour. silver sulfadiazine [Silvadene] 1 % cream 1 applic topical BID Rx Instructions: apply a 1.5 mm thickness lidocaine 5 % ointment 1 applic topical TID PRN (Reason: Pain) Rx Instructions: Apply to affected area. morphine concentrate 100 mg/5 mL (20 mg/mL) solution 5 mg PO Q4H PRN (Reason: Severe Pain (Scale Score 7-10)) lidocaine HCl [Lidocaine Viscous] 2 % solution 2.5 ml mucous membrane Q6H PRN (Reason: Severe Pain (Scale Score 7-10)) Rx Instructions: Swish and spit orally Boost VHC 0.09-2.25 gram-kcal/mL Liquid 1 ea feeding tube TID Discharge Orders: Discharge Order (Routine); Ordered 08/12/22 Ordered By: Marleen Shea/Other Patient Handouts: Treating Constipation, Cancer Constipation Tips, Preventing Deep Vein Thrombosis, DVT Dc Admission Data Admit Date/Time: 08/10/22 14:52 Attending Provider: Marleen Witt Admit Provider: Shira Moreno Primary Care Provider: PCP,NO Other Providers: Shira Moreno
== END 2022-08-12 16:06 | disposition home or self-care (01) | DRG 391 ==
LOC: ED 09:35 → 2N 14:52 → SUATTDRO 14:52 → 2N 17:55